=== PATIENT | male | born 1995 | race Caucasian/White ===

== ENCOUNTER 2021-07-11 22:38 | Emergency (ER) | payer MEDICAID ==
[~2021-07-11] VITALS: Ht 180.3 cm; Wt 72.1 kg
[2021-07-11 23:07] VITALS: BP 122/70
--- NOTE | 2021-07-11 23:18 | NUR ---
PT TAKEN TO BED 12.
[2021-07-12] MEDS ORDERED: HYDROcodone/APAP 5/325 MG 1 TAB TAB PO ONE (00:05)
[2021-07-12 00:23] VITALS: BP 129/80
[2021-07-12] MEDS ORDERED: ACETAMINOPHEN EXTRA STRENGTH 500 MG TAB PO ONE (00:45)
--- NOTE | 2021-07-12 00:49 | NUR ---
Patient does not wish to proceed with medical care recommended by SHEFALI. Patient given information related to possible complications, up to and including , which could occur as a result of leaving hospital at this time. Patient verbalizes understanding of risks involved leaving against medical advice. Patient has signed AMA form.
== END 2021-07-12 00:49 | disposition left against medical advice (07) ==
LOC: MED 22:38
DX: M79.605 Pain in left leg (principal); Z89.612 Acquired absence of left leg above knee
CPT/HCPCS: 99283

== ENCOUNTER 2021-09-18 12:42 | Emergency (ER) | payer MEDICAID ==
[~2021-09-18] VITALS: Ht 180.3 cm; Wt 76.7 kg
[2021-09-18 12:46] VITALS: BP 131/73
--- NOTE | 2021-09-18 13:00 | NUR ---
PT AMBULATED TO BED 09.
--- NOTE | 2021-09-18 13:27 | NUR ---
DR MCCABE AT BEDSIDE FOR EVALUATION
[2021-09-18] MEDS ORDERED: ONDANSETRON 4 MG ODT PO ONE (13:40)
[2021-09-18] MEDS ORDERED: DICYCLOMINE HCL LIQUID 20 MG, ALUMINUM HYD/MAG/SIMETHICONE 30 ML, LIDOCAINE VISCOUS 2% ... PO ONE ×3 (13:40)
[2021-09-18] MEDS ORDERED: DEXAMETHASONE 10 MG/ML VIAL PO ONE (13:40)
[2021-09-18] MEDS ORDERED: DICYCLOMINE HCL LIQUID 10 MG/5 ML UDC ONE (13:43)
[2021-09-18] MEDS ORDERED: ALUMINUM HYD/MAG/SIMETHICONE 30 ML UDC ONE (13:43)
[2021-09-18] MEDS ORDERED: PHEN177S23 PO (13:59)
[2021-09-18] MEDS ORDERED: DEC4 PO (13:59)
[2021-09-18] MEDS ORDERED: AMOX1TAB8 PO (13:59)
[2021-09-18] MEDS ORDERED: IBUP-1842 PO (13:59)
--- NOTE | 2021-09-18 14:01 | NUR ---
25/M PRESENTS TO ED WITH C/O THROAT DISCOMFORT SINCE THIS MORNING. PATIENT ADMITS TO USING COCAINE AND DRINKING AN EXCESSIVE AMOUNT OF ALCOHOL LAST NIGHT, STATES HE WOKE UP TODAY AND HIS "UVULA IS SWOLLEN." PATIENT DENIES PAIN, SOB OR DIFFICULTY SPEAKING BUT STATES CONSTANT DISCOMFORT THAT WORSENS WHEN LEANING FORWARD. PATIENT REPORTS NAUSEA, DENIES V/D, ABD PAIN, CP.
[2021-09-18 15:08] VITALS: BP 131/73
--- NOTE | 2021-09-18 15:08 | NUR ---
Patient discharged with v/s stable. Written and verbal after care instructions about Uvulitis given and explained. Patient alert, oriented and verbalized understanding of instructions. Ambulatory with steady gait. All questions addressed prior to discharge. ID band removed. Patient advised to follow up with PMD. Rx of Augmentin, Motrin, Decadron, Phenol given. Patient educated on indication of medication including possible reaction and side effects. Opportunity to ask questions provided and answered.
== END 2021-09-18 15:08 | disposition home or self-care (01) ==
LOC: MED 12:42
DX: K12.2 Cellulitis and abscess of mouth (principal); F10.10 Alcohol abuse, uncomplicated; F15.90 Other stimulant use, unspecified, uncomplicated; F14.90 Cocaine use, unspecified, uncomplicated; Z79.899 Other long term (current) drug therapy
CPT/HCPCS: 93005; 99284; J1100; Q0162